=== PATIENT | male | born 1995 | race Caucasian/White ===

== ENCOUNTER 2018-03-06 04:16 | Emergency (ER) | payer SELFPAY ==
[2018-03-06] MEDS ORDERED: Albuterol 6.7 GM Inhaler INH ONE ×2 (04:17→05:44)
[2018-03-06] MEDS ORDERED: Albuterol/Ipratropium 3.0-0.5 MG/3 ML Neb Soln NEB ONE (04:35)
[2018-03-06] MEDS ORDERED: Fluorescein 1 MG Ophth Strip EYEBOTH ONE (04:54)
[2018-03-06] MEDS ORDERED: Tetracaine HCl/PF 0.5% 4 ML Bottle EYEBOTH ONE (04:54)
--- NOTE | 2018-03-06 04:54 | EDM.PDOC ---
ED HPI GENERAL MEDICAL PROBLEM - General Chief Complaint: General Stated Complaint: SICK [id number] Time Seen by Provider: 03/06/18 04:45 Source of Information: Reports: Patient History Limitations: Reports: No Limitations - History of Present Illness INITIAL COMMENTS - FREE TEXT/NARRATIVE: ED with c/o cough, not feeling well. 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 Arrived in [place] in January. Hx asthma. States unable to bring inhaler with him.. Sx started approximately one week ago. Feels warm during day, unknown if fever. Coughs hard until vomits. Also c/o eye irritation to both eyes left greater after being around dust and wiped eyes. Frontal Headache Pain Score (Numeric/FACES): 7 - Related Data Allergies Allergy/AdvReac Type Severity Reaction Status Date / Time Fish Containing Products Allergy Anaphylactic Verified 03/06/18 04:35 Shock Past Medical History Respiratory History: Reports: Asthma Social & Family History - Tobacco Use Smoking Status *Q: Never Smoker Second Hand Smoke Exposure: No - Caffeine Use Caffeine Use: Reports: None - Recreational Drug Use Recreational Drug Use: No ED ROS GENERAL - Review of Systems Review Of Systems: See Below Constitutional: Reports: Fever, Malaise, Fatigue HEENT: Reports: Throat Pain (at onset) Respiratory: Reports: Wheezing, Cough, Sputum Cardiovascular: Reports: No Symptoms GI/Abdominal: Reports: Diarrhea Musculoskeletal: Reports: Other (general joint discomfort) Skin: Reports: No Symptoms Neurological: Reports: No Symptoms ED EXAM, GENERAL - Physical Exam Exam: See Below Exam Limited By: No Limitations General Appearance: Alert, Mild Distress Eye Exam: Bilateral Eye: EOMI, Other (mild irritation mild sceral injection) Ears: Normal External Exam, Normal TMs Nose: Normal Inspection Throat/Mouth: Normal Inspection Head: Atraumatic, Normocephalic Neck: Normal Inspection. No: Lymphadenopathy (L), Lymphadenopathy (R) Respiratory/Chest: Decreased Breath Sounds, Rhonchi Cardiovascular: Normal Peripheral Pulses, Regular Rate, Rhythm Extremities: Normal Inspection Neurological: Alert, Oriented, Normal Cognition Psychiatric: Normal Affect, Anxious Skin Exam: Warm, Dry, Intact, Normal Color Course - Vital Signs Last Recorded V/S: Last Vital Signs Temp 98.9 F 03/06/18 04:20 Pulse 93 03/06/18 04:20 Resp 21 H 03/06/18 04:20 BP 142/86 H 03/06/18 04:20 Pulse Ox 98 03/06/18 04:20 - Orders/Labs/Meds Orders: Active Orders 24 hr Category Date Time Status RT Aerosol Therapy [RC] ASDIRECTED Care 03/06/18 04:35 Active RT Aerosol Therapy [RC] ASDIRECTED Care 03/06/18 05:09 Active CULTURE STREP A CONFIRMATION [] Stat Lab 03/06/18 04:40 Results STREP SCRN A RAPID W CULT CONF [] Stat Lab 03/06/18 04:40 Results Meds: Medications Discontinued Medications Generic Name Dose Route Start Last Admin Trade Name Freq PRN Reason Stop Dose Admin Albuterol 2.5 mg 03/06/18 05:09 03/06/18 05:17 Proventil Neb Soln NEB 03/06/18 05:10 2.5 mg ONETIME ONE Administration Albuterol/Ipratropium 3 ml 03/06/18 04:35 03/06/18 04:41 Duoneb 3.0-0.5 Mg/3 Ml NEB 03/06/18 04:36 3 ml ONETIME ONE Administration Fluorescein Sodium 1 mg 03/06/18 04:54 03/06/18 05:08 Ful-Denia EYEBOTH 03/06/18 04:55 1 mg ONETIME ONE Administration Prednisone 20 mg 03/06/18 05:09 03/06/18 05:17 Prednisone PO 03/06/18 05:10 20 mg ONETIME ONE Administration Tetracaine HCl 1 ml 03/06/18 04:54 03/06/18 05:08 Tetracaine 0.5% Steri-Unit Madyson EYEBOTH 03/06/18 04:55 1 ml ASDIRECTED ONE Administration Departure - Departure Time of Disposition: 05:40 Disposition: Home, Self-Care 01 Condition: Good Clinical Impression: Asthma exacerbation Qualifiers: Asthma severity: mild Asthma persistence: intermittent Qualified Code(s): J45.21 - Mild intermittent asthma with (acute) exacerbation - Discharge Information Instructions: Asthma, Adult, [id number] Forms: ED Department Discharge Additional Instructions: Albuterol inhaler 2 puffs every 4 hours as needed Prednisone 20mg daily for 3 days then 10mg daily for 3 days moisturizing eye drops three times daily as needed for irritation follow up if symptoms not improving - My Orders Last 24 Hours: My Active Orders 03/06/18 04:35 RT Aerosol Therapy [RC] ASDIRECTED 03/06/18 04:40 CULTURE STREP A CONFIRMATION [RM] Stat STREP SCRN A RAPID W CULT CONF [RM] Stat 03/06/18 05:09 RT Aerosol Therapy [RC] ASDIRECTED - Assessment/Plan Last 24 Hours: My Active Orders 03/06/18 04:35 RT Aerosol Therapy [RC] ASDIRECTED 03/06/18 04:40 CULTURE STREP A CONFIRMATION [RM] Stat STREP SCRN A RAPID W CULT CONF [RM] Stat 03/06/18 05:09 RT Aerosol Therapy [RC] ASDIRECTED
[2018-03-06] MEDS ORDERED: Albuterol 0.083% 2.5 MG/3 ML Neb Soln NEB ONE (05:09)
[2018-03-06] MEDS ORDERED: predniSONE 20 MG Tab PO ONE (05:09)
== END 2018-03-06 05:50 | disposition home or self-care (01) ==
LOC: DL.ED 04:16
DX: J45.21 Mild intermittent asthma with (acute) exacerbation (principal); Z91.013 Allergy to seafood
CPT/HCPCS: 87081; 87430; 87804; 94640; 99284; A9270; J7620